=== PATIENT | female | born 1980 | race African-American/Black ===

== ENCOUNTER 2023-12-08 12:30 | Emergency (ER) | payer OTHER ==
[2023-12-08 12:50] VITALS: RESP 18; TEMP 98; BMI 33.7
[2023-12-08] MEDS ORDERED: ACETAMINOPHEN 325 MG TABLET (FP) ONE (14:05)
[2023-12-08] MEDS: ACETAMINOPHEN 325 MG TABLET (FP) PO ONE (14:09)
[2023-12-08] MEDS: SODIUM CHLORIDE 0.9% 500 ML INFUS.BAG IV ONE (14:09)
[2023-12-08 14:31] LABS: BASO % 0.2 % (0-2.0); EOS % 0.8 % (0-4.5); HEMATOCRIT 39.2 % (32.4-45.2); HEMOGLOBIN 13.1 GM/dL (10.7-15.3); LYMPH % 40.1 % (8-40); MCH 29.8 pg (25.7-33.7); MCHC 33.3 g/dl (32.0-36.0); MEAN CELL VOLUME 89.4 fl (80-96); MEAN PLT VOLUME 8.8 fl (7.5-11.1); MONO % 8.7 % (3.8-10.2); NEUT % 50.2 % (42.8-82.8); PLATELET COUNT 317 10^3/uL (134-434); RBC 4.38 M/mm3 (3.60-5.2); RDW 13.9 % (11.6-15.6); WHITE BLOOD COUNT 4.2 K/mm3 (4.0-10.0)
[2023-12-08 14:44] LABS: POTASSIUM 3.9 mmol/L (3.5-5.1)
[2023-12-08 14:46] LABS: ALBUMIN 3.6 g/dl (3.4-5.0); BLOOD UREA NITROGEN 9.4 mg/dL (7-18); CALCIUM 9.7 mg/dL (8.5-10.1); MAGNESIUM 2.1 mg/dL (1.8-2.4)
[2023-12-08 14:50] LABS: CREATININE 0.8 mg/dL (0.55-1.3)
[2023-12-08 14:51] LABS: BILIRUBIN,TOTAL 0.3 mg/dL (0.2-1); TOT PROT 7.6 g/dl (6.4-8.2)
[2023-12-08 15:47] VITALS: BP 150/93; PULSE 80
== END 2023-12-08 16:17 | disposition home or self-care (01) ==
LOC: JER 12:30
DX: R51.9 Headache, unspecified (principal); I10 Essential (primary) hypertension; R53.1 Weakness; R42 Dizziness and giddiness; Z20.822 Contact with and (suspected) exposure to COVID-19
CPT/HCPCS: 0241U-QW; 36415; 70450-TC; 70496-TC; 70498-TC; 71046-TC-FY; 80053; 83735; 84484; 84703; 85025; 93005; 93010; 99285-25; Q9967